=== PATIENT | male | born 1945 | race Caucasian/White ===

== ENCOUNTER → 2017-02-17 | Outpatient (CLI) | payer MEDICARE, BC | END | disposition home or self-care (01) | LOC: GMAB 10:02 | PROVIDERS: ATTEND Family Medicine | DX: E03.9 Hypothyroidism, unspecified (principal); Z12.5 Encounter for screening for malignant neoplasm of prostate; E29.1 Testicular hypofunction | CPT/HCPCS: 84403; 84439; 84443; 84481; G0103 ==

== ENCOUNTER → 2018-12-29 | Outpatient (CLI) | payer MEDICARE | LOC: YCFC.O 09:55 | PROVIDERS: ATTEND Family Medicine | DX: Z01.818 Encounter for other preprocedural examination (principal) ==

== ENCOUNTER → 2019-04-05 | Outpatient (CLI) | payer MEDICARE | LOC: YCFC.O 09:42 | PROVIDERS: ATTEND Family Medicine | DX: I10 Essential (primary) hypertension (principal) ==

== ENCOUNTER → 2019-04-06 | Outpatient (CLI) | payer MEDICARE | LOC: LAB.O 07:08 | PROVIDERS: ATTEND Family Medicine | DX: E03.9 Hypothyroidism, unspecified (principal); I10 Essential (primary) hypertension; E78.5 Hyperlipidemia, unspecified; Z12.5 Encounter for screening for malignant neoplasm of prostate; Z13.220 Encounter for screening for lipoid disorders | CPT/HCPCS: 36415; 80061; 84443; 85025; G0103 ==

== ENCOUNTER → 2019-11-16 | Outpatient (CLI) | payer MEDICARE | LOC: LAB.O 11:50 | PROVIDERS: ATTEND Family Medicine | DX: I42.9 Cardiomyopathy, unspecified (principal); I10 Essential (primary) hypertension; E03.9 Hypothyroidism, unspecified ==

== ENCOUNTER → 2020-02-18 | Outpatient (CLI) | payer MEDICARE ==
--- NOTE | 2020-02-21 08:47 | CT ---
EXAM DESCRIPTION: Cardiac Calcium Scoring Screen CLINICAL HISTORY: COROMARY ARTERIOSCLEROSIS COMPARISON: None. TECHNIQUE: Limited noncontrast CT images of the chest are obtained for evaluation of coronary artery calcium scoring. This exam was performed according to our departmental dose-optimization program, which includes automated exposure control, adjustment of the mA and/or kV according to patient size and/or use of iterative reconstruction technique . FINDINGS: Total coronary artery calcium score is 362. The heart is enlarged. Mild dilatation of the ascending thoracic aorta measures 4.2 cm. No pathologically enlarged mediastinal or hilar lymphadenopathy. Mild areas of interstitial thickening and groundglass attenuation are seen in the lungs bilaterally. Trace left pleural effusion. IMPRESSION: Total coronary artery calcium score is 362. This score places the patient in the 50th percentile rank. That means that 50% of males at the ages from 71-75 have a higher calcium score. Mild enlargement of the ascending thoracic aorta measures 4.2 cm. Mild cardiomegaly. Imaging features can be seen with viral pneumonia, though are nonspecific and can occur with a variety of infectious and noninfectious processes. [PneInd] Reference: https://pubs.[facility]na.org/doi/full/[email or web address]/[email or web address] Electronically signed by: Arsenio Figueroa MD 02/21/2020 8:46 AM CDT
== END ==
LOC: CT 07:57
PROVIDERS: ATTEND Family Medicine
DX: I25.10 Atherosclerotic heart disease of native coronary artery without angina pectoris (principal); I51.7 Cardiomegaly; E78.5 Hyperlipidemia, unspecified

== ENCOUNTER → 2020-06-22 | Outpatient (CLI) | payer MEDICARE | LOC: YCFC.O 08:25 | PROVIDERS: ATTEND Family Medicine | DX: I10 Essential (primary) hypertension (principal); E03.9 Hypothyroidism, unspecified; N40.1 Benign prostatic hyperplasia with lower urinary tract symptoms; I42.9 Cardiomyopathy, unspecified ==